=== PATIENT | male | born 1940 | race Caucasian/White ===

== ENCOUNTER 2017-02-17 10:05 | Day surgery (SDC) | payer MEDICARE, MEDICAID ==
[2017-02-02 10:18] VITALS: BMI 25.7
[2017-02-17] MEDS ORDERED: Lidocaine 1% Inj (20ml) ONE ×2 (12:55→13:21)
[2017-02-17] MEDS ORDERED: Bupivacaine/Epi 0.25%-1:200,000 10 ml PF inj IJ ONE (12:55)
[2017-02-17] MEDS ORDERED: ceFAZolin 1 gm FROZEN Premix 1 GM/50 ML ML IVPB ONE (12:55)
[2017-02-17] MEDS ORDERED: Lactated Ringer's 1,000 ML IV ONE ×2 (13:00→15:00)
[2017-02-17] MEDS ORDERED: Propofol 10 mg/ml Inj (20 ML) ONE (13:06)
[2017-02-17] MEDS ORDERED: HYDROmorphone 0.5 mg/0.5 ml ISec IVP PRN (14:25)
--- NOTE | 2017-02-17 15:05 | PCM.SURG1 ---
Surgeon's Initial Post Op Note - Surgeon's Notes Surgeon: Dr. Lorenzo Roustabout Crew Leader: none Pre-Operative Diagnosis: keloid right ear Operative Findings: see operative report Post-Operative Diagnosis: see operative report Operation Performed: excision of keloid, right ear Specimen/Specimens Removed: keloid Estimated Blood Loss: EBL {In ML}: 5 Blood Products Given: N/A Drains Used: No Drains Post-Op Condition: Good Date of Surgery/Procedure: 02/17/17 Time of Surgery/Procedure: 14:00
[2017-02-17 15:44] VITALS: BP 120/60; PULSE 62; RESP 18; TEMP 97.5; O2SAT 100
--- NOTE | 2017-02-18 08:51 | OP ---
PROCEDURE DATE: 02/17/2017 PREOPERATIVE DIAGNOSES: Right ear keloid, approximately 3 x 2 cm in size. POSTOPERATIVE DIAGNOSIS: Right ear keloid, approximately 3 x 2 cm in size. PROCEDURE DONE: 1. Excision of the right ear keloids. 2. Flap closure of right ear defect 3 x 4 cm size. SURGEON: Miguel Lorenzo MD. FISH ICER: Star Green, PGY-1. ANESTHESIA: General anesthesia with LMA. ESTIMATED BLOOD LOSS: Around 10 mL. DRAIN: None. PATHOLOGY: Keloid was sent for pathology. COMPLICATIONS: None. INTRAOPERATIVE FINDINGS: The patient had 3 x 2 cm keloid of the right ear posteriorly. INTRAOPERATIVE STEPS: This is a 77-year-old male who was diagnosed with a keloid of the right ear and patient was consented for excision of keloid with the closure of the wound with flap. The patient was brought to the OR, placed supine on the operating table. After induction of the anesthesia, the right ear was prepped and draped in a usual sterile fashion. An elliptical incision was made surrounding the keloid and keloid was dissected free from the underlying cartilage and hemostasis was accomplished. Now the skin flap was raised to close to 3 x 4 cm defect and anterior skin flap as well as the posterior skin flap upper and lower skin flap was created and wound was closed in 1 layer with 4-0 nylon interrupted suture and dry sterile dressing was applied. The patient tolerated the procedure well. Count of instruments and gauze was correct. There was no apparent complication. The patient was extubated in the OR, sent to the postanesthesia care unit in stable condition. Miguel Lroenzo MD cc: [id number] TT: 02/18/2017 08:50:32 jn MTDD
== END 2017-02-17 15:49 | disposition home or self-care (01) ==
LOC: C.SDS 10:05
PROVIDERS: ATTEND Surgery Surgical Critical Care
DX: L91.0 Hypertrophic scar (principal)
CPT/HCPCS: 11443; 88305; J0690; J2704; J3010; J7120

== ENCOUNTER 2018-12-13 09:20 | Outpatient (CLI) | payer MEDICARE, MEDICAID | END 2018-12-13 09:21 | disposition home or self-care (01) | LOC: C.PAT 09:20 | DX: L91.0 Hypertrophic scar (principal) ==

== ENCOUNTER 2018-12-21 09:04 | Day surgery (SDC) | payer MEDICARE, MEDICAID ==
[2018-12-13 09:40] VITALS: BMI 21.9
[2018-12-21] MEDS ORDERED: ceFAZolin 1 gm in NS 1 GM/100 ML BAG IVPB ONE (13:14)
[2018-12-21] MEDS ORDERED: Bupivacaine 0.25% 20 ML INJ IJ ONE (13:15)
[2018-12-21] MEDS ORDERED: Lidocaine/Epinephrine 1% 1:100000 10 ML IJ ONE (13:15)
[2018-12-21] MEDS ORDERED: Propofol 10 mg/ml Inj (20 ML) ONE (13:22)
[2018-12-21] MEDS ORDERED: ePHEDrine 50 mg/ml Inj ONE (13:54)
--- NOTE | 2018-12-21 14:28 | PCM.SURG1 ---
Surgeon's Initial Post Op Note - Surgeon's Notes Surgeon: MD Bj Automat Watcher: Hakan PGY3 Pre-Operative Diagnosis: Right ear keloid Operative Findings: right ear keloid Post-Operative Diagnosis: Right ear keloid Operation Performed: Excision of right ear keloid Specimen/Specimens Removed: Right ear keloid Estimated Blood Loss: EBL {In ML}: 5 Date of Surgery/Procedure: 12/21/18 Time of Surgery/Procedure: 13:00
[2018-12-21] MEDS ORDERED: HYDROmorphone 0.5 mg/0.5 ml ISec IVP PRN (14:35)
[2018-12-21 15:39] VITALS: BP 100/60; PULSE 79; RESP 18; TEMP 97; O2SAT 100
--- NOTE | 2018-12-22 04:14 | OP ---
PROCEDURE DATE: 12/21/2018 PREOPERATIVE DIAGNOSIS: Multiple keloids of the right ear posterior helix. POSTOPERATIVE DIAGNOSIS: Multiple keloids of the right ear posterior helix PROCEDURES DONE: 1. Excision of the right ear keloid, posterior helix inferior, 2 x 1 cm size. 2. Excision of the right ear keloid, posterior helix superior, 3 x 1 cm size. 3. Repositioning of the skin of the posterior ear and neck and reconstruction of the posterior right ear 5x3 cm defect SURGEON: Miguel Lorenzo MD SCHOOL PHOTOGRAPHER: Max Mcclendon DO, PGY-3 resident ANESTHESIA: General anesthesia with LMA. ESTIMATED BLOOD LOSS: Around 10 mL. DRAINS: None. PATHOLOGY: Right ear keloids, posterior helix, multiple, was sent for the pathology. COMPLICATIONS: None. INTRAOPERATIVE FINDINGS: The patient has superior and inferior right ear keloids, posterior helix area. DESCRIPTION OF THE PROCEDURE: On intraoperative steps, this 78-year-old male was diagnosed with right ear keloids. The patient was consented for excision of the multiple right ear keloids. The patient was brought to the OR, placed supine on the operating table. After induction of the anesthesia, the right ear was prepped and draped in the usual sterile fashion. The local anesthesia was injected. An elliptical incision was made surrounding the inferior keloid and it was excised. The superior keloid was also excised of full thickness, and it was sent off the table for the pathology. Now, the posterior ear skin as well as the neck area skin was mobilized to do the repositioning as well as the reconstruction of the right posterior ear defect, and proper hemostasis was achieved. The defect was approximately 5 x 3 cm size. The skin over helix area was also mobilized to properly reconstruct the ear. After that, the skin was approximated using the 4-0 nylon interrupted multiple sutures, and a dry sterile dressing was applied. The patient tolerated the procedure well. Count of instrument and gauze was correct. There was no apparent complication. The patient was reversed from anesthesia and sent to the postanesthesia care unit in stable condition. Miguel Lorenzo MD [facility] # [id number] YOLANDA
== END 2018-12-21 15:47 | disposition home or self-care (01) ==
LOC: C.SDS 09:04
PROVIDERS: ATTEND Surgery Surgical Critical Care
DX: L91.0 Hypertrophic scar (principal)
CPT/HCPCS: 11446; 12053; 88305; J0690; J2704; J3010